=== PATIENT | female | born 1980 | race American Indian/Alaskan Native ===

== ENCOUNTER 2017-02-11 13:40 | Emergency (ER) | payer OTHER ==
[2017-02-11 14:27] VITALS: BP 128/73
--- NOTE | 2017-02-11 15:23 | Cat Scan Report ---
FINAL REPORT PROCEDURE: CT HEAD/BRAIN WO CON TECHNIQUE: Computerized tomography of the head was performed without contrast material. HISTORY: Pain/headache COMPARISON: No prior studies are available for comparison. FINDINGS: Brain: Brain density appears normal. No evidence of intracranial hemorrhage. No parenchymal hemorrhage, mass lesions or mass effect are seen. No abnormal extraxial fluid collects or masses are seen. Ventricles: Ventricles are normal size and are midline. Bone Windows: No evidence of skull fracture. Paranasal sinuses: Small amount of fluid is collected posteriorly in the right and left side of the sphenoid sinus. There is mild mucosal thickening in a few of the ethmoid air cells. Visualized portions of the paranasal sinuses otherwise appear clear. Mastoid air cells: Clear IMPRESSION: Negative unenhanced CT of the brain. Paranasal sinus disease as described. Small amount of fluid is seen in the sphenoid sinuses. I cannot exclude acute sinusitis.
--- NOTE | 2017-02-11 15:37 | Cat Scan Report ---
FINAL REPORT PROCEDURE: CT SINUSES WO CON TECHNIQUE: Computerized axial tomography of the paranasal sinuses was performed without contrast material. Axial, coronal, and sagittal multiplanar reformatted images were created from the original dataset. HISTORY: Pain/headache COMPARISON: No prior studies are available for comparison. FINDINGS: There is mild mucosal thickening in both maxillary sinuses. There is also mild mucosal thickening anteriorly in the sphenoid sinuses. A small air-fluid levels present in the left side of the sphenoid sinus in there is a small amount of fluid or mucosal thickening posteriorly in the right side of the sphenoid sinus. Ethmoid air cells are clear with the exception of minimal mucosal thickening. The frontal sinuses and frontal ethmoidal recesses are clear. Nasal septum is mildly deviated to the right. The infundibulum of the right and left OMC are mildly narrowed secondary to mild mucosal thickening in some mucous otherwise are patent. The middle meatus and semilunar hiatus appear adequate. The sphenoid ethmoidal recesses appear clear. IMPRESSION: Mild diffuse paranasal sinus disease. As indicated above there appears to be a small amount of fluid in the sphenoid sinus. I cannot exclude mild acute sinusitis. Please see above for further details.
[2017-02-11] MEDS ORDERED: MOTRIN PO ONE (17:19)
--- NOTE | 2017-02-11 17:26 | Emergency Department Report ---
- General Chief Complaint: Upper Respiratory Infection Stated Complaint: MOUTH PAIN Time Seen by Provider: 02/11/17 17:09 Source: patient Mode of arrival: Ambulatory Limitations: No Limitations - History of Present Illness Initial Comments: This is a 36-year-old female well-nourished with nontoxic or ill in appearance but presents with sinus headache and toothache. Patient describes headache as a gradual onset in the frontal lobe region that is describes as throbbing aching with a level of 8/10. Patient denies trauma, blurry vision, thunderclap headache , SOB, CP, abdominal pain, n/v, numbness or tingling sentation, or sore throat. Patient denies sick contact. Patient stated symptoms has occurred since and is getting worse. Patient stated has subjective fever and chills. Denies having a PCP or dentist. Denies any drug allergies. MD Complaint: sinus pain -: Gradual, days(s) (3) Severity: moderate Severity scale (0 -10): 8 Quality: aching, other (throbbing) Consistency: constant Improves With: NSAID Associated Symptoms: fever, chills, headache. denies: myalgias, diaphoresis, rhinorrhea, nasal congestion, sore throat, stiff neck, cough, chest pain, shortness of breath, abdominal pain, nausea, vomiting, diarrhea, dysuria, rash, confusion, right sweats, weight loss, epistaxis, hoarseness, ear pain Treatments Prior to Arrival: none - Related Data Previous Rx's Medication Instructions Recorded Last Taken Type Simethicone [Gas Relief] 125 mg PO 1XW #28 capsule 04/08/16 Unknown Rx Amoxicillin/K Clav Tab [Augmentin 1 tab PO Q12HR 10 Days 02/11/17 Unknown Rx 875 mg] Allergies Allergy/AdvReac Type Severity Reaction Status Date / Time No Known Allergies Allergy Unverified 04/08/16 08:18 ED Review of Systems ROS: Stated complaint: MOUTH PAIN Other details as noted in HPI Constitutional: denies: chills, fever Eyes: denies: eye pain, eye discharge, vision change ENT: denies: ear pain, throat pain Respiratory: denies: cough, shortness of breath, wheezing Cardiovascular: denies: chest pain, palpitations, dyspnea on exertion, orthopnea , edema, syncope Endocrine: no symptoms reported Gastrointestinal: denies: abdominal pain, nausea, diarrhea Genitourinary: denies: urgency, dysuria, discharge Musculoskeletal: denies: back pain, joint swelling, arthralgia Skin: denies: rash, lesions Neurological: headache. denies: weakness, numbness, paresthesias, confusion, abnormal gait, vertigo Psychiatric: denies: anxiety, depression Hematological/Lymphatic: denies: easy bleeding, easy bruising ED Past Medical Hx - Past Medical History Previous Medical History?: No - Surgical History Past Surgical History?: Yes Additional Surgical History: Hysterectomy - Social History Smoking Status: Never Smoker Substance Use Type: None - Medications Home Medications: Home Medications Medication Instructions Recorded Confirmed Last Taken Type Simethicone [Gas Relief] 125 mg PO 1XW #28 capsule 04/08/16 Unknown Rx Amoxicillin/K Clav Tab [Augmentin 1 tab PO Q12HR 10 Days 02/11/17 Unknown Rx 875 mg] ED Physical Exam - General Limitations: No Limitations General appearance: alert, in no apparent distress - Head Head exam: Present: atraumatic, normocephalic - Eye Eye exam: Present: normal appearance, PERRL, EOMI. Absent: scleral icterus, conjunctival injection, nystagmus, periorbital swelling, periorbital tenderness Pupils: Present: normal accommodation - ENT ENT exam: Present: normal exam, normal orophraynx, mucous membranes moist, TM's normal bilaterally, normal external ear exam - Expanded ENT Exam Expanded Ear exam: Present: normal external inspection Mouth exam: Present: normal external inspection, tongue normal. Absent: drooling, trismus, muffled voice, tongue elevation, laceration Teeth exam: Present: dental caries (right upper 3rd molar), fractured tooth # ( right upper 3rd molar). Absent: dental tenderness #, gingival enlargement Throat exam: Positive: normal inspection. Negative: tonsillar erythema, tonsillomegaly, tonsillar exudate, R peritonsillar mass, L peritonsillar mass - Neck Neck exam: Present: normal inspection, full ROM. Absent: tenderness, meningismus, lymphadenopathy, thyromegaly - Respiratory Respiratory exam: Present: normal lung sounds bilaterally. Absent: respiratory distress, wheezes, rales, rhonchi, stridor, chest wall tenderness, accessory muscle use, decreased breath sounds, prolonged expiratory - Cardiovascular Cardiovascular Exam: Present: regular rate, normal rhythm, normal heart sounds. Absent: bradycardia, tachycardia, irregular rhythm, systolic murmur, diastolic murmur, rubs, gallop - GI/Abdominal GI/Abdominal exam: Present: soft, normal bowel sounds. Absent: distended, tenderness - Extremities Exam Extremities exam: Present: normal inspection, full ROM, normal capillary refill. Absent: tenderness, pedal edema, joint swelling, calf tenderness - Back Exam Back exam: Present: normal inspection, full ROM. Absent: tenderness, CVA tenderness (R), CVA tenderness (L), muscle spasm, paraspinal tenderness, vertebral tenderness, rash noted - Neurological Exam Neurological exam: Present: alert, oriented X3, CN II-XII intact, normal gait - Expanded Neurological Exam Expanded Patient oriented to: Present: person, place, time Speech: Present: fluid speech (normal speech) Cranial nerves: EOM's Intact: Normal, Gag Reflex: Normal, Tongue Deviation: Normal, Nystagmus: Normal, Facial Sensation: Normal, Facial Palsy with Forehead Movement: Normal, Facial Palsy without Forehead Movement: Normal Cerebellar function: Finger to Nose: Normal, Heel to Gauthier: Normal, Romberg: Normal Upper motor neuron: Javon Neglect: Normal, Pronator Drift: Normal, Sensory Extinction: Normal Sensory exam: Upper Extremity Light Touch: Normal, Upper Extremity Pin Prick: Normal, Upper Extremity Temperature: Normal, UE 2 Point Discrimination: Normal, Lower Extremity Light Touch: Normal, Lower Extremity Pin Prick: Normal, Lower Extremity Temperature: Normal, LE 2 Point Discrimination: Normal Motor strength exam: RUE: 5, LUE: 5, RLE: 5, LLE: 5 Best Eye Response (Staley): (4) open spontaneously Best Motor Response (Giselle): (6) obeys commands Best Verbal Response (Staley): (5) oriented Giselle Total: 15 - Psychiatric Psychiatric exam: Present: normal affect, normal mood - Skin Skin exam: Present: warm, dry, intact, normal color. Absent: rash - Other Other exam information: Frontal sinus tenderness upon palpation. ED Course Vital Signs 02/11/17 02/11/17 14:17 18:13 Temperature 99.0 F 98.0 F Pulse Rate 87 Blood Pressure 128/73 O2 Sat by Pulse 100 Oximetry ED Medical Decision Making - Medical Decision Making ED course: This is a 36-year-old female that presents with acute sinusitis and dental caries. 1- after my physical exam, patient received Augmentin 875 mg by mouth for 10 days. Patient was instructed to finish full course of antibiotics as prescribed. A CT of head/brain and sinus has been obtained in [facility] ED. Ct of head/brain w/o contrast dictated by Dr. Hanna: Negative unenhanced CT of brain. CT of sinuses without contrast dictated by Dr. Hanna: Mild diffuse paranasal sinus disease. As indicated appears to be a small amount of fluid in the sphenoid sinus. Cannot exclude mild acute sinusitis. Due to the clinical symptoms my suspicion patient has acute sinusitis and will be treated for sinusitis. 2- patient was instructed to follow-up with her primary care doctor in 3-5 days or if symptoms worsen such as severe sudden headache, chest pain, shortness of breath, nausea vomiting, abdominal pain or numbness or tingling sensation before by the emergency room. 3- at time time of discharge, the patient does not seem toxic or ill in appearance. No acute signs of distress noted. Patient agrees to discharge treatment plan of care. No further questions noted by the patient. Critical care attestation.: If time is entered above; I have spent that time in minutes in the direct care of this critically ill patient, excluding procedure time. ED Disposition Clinical Impression: Dental caries Sinusitis, acute Qualifiers: Sinusitis location: frontal Recurrence: not specified as recurrent Qualified Code(s): J01.10 - Acute frontal sinusitis, unspecified Disposition: DISCHARGED TO HOME OR SELFCARE Is pt being admited?: No Does the pt Need Aspirin: No Condition: Stable Instructions: Dental Caries (ED), Sinusitis (ED) Additional Instructions: Follow-up with her primary care doctor/dentist in 3-5 days or if symptoms worsen such as severe sudden headache, chest pain, shortness of breath, nausea vomiting, abdominal pain or numbness or tingling sensation before by the emergency room. Take full course of antibiotic as prescribed. Take ibuprofen as prescribed as needed. Prescriptions: Amoxicillin/K Clav Tab [Augmentin 875 mg] 1 tab PO Q12HR 10 Days Referrals: [facility] [place] [Outside] - 3-[address] [facility] [Outside] - 3-5 Days PRIMARY CAREMD [Primary Care Provider] - 3-5 Days MAVIS SHOOK MD [Staff Physician] - 3-5 Days [facility] [Outside] - 3-5 Days Forms: Work/School Release Form(ED)
== END 2017-02-11 18:56 | disposition home or self-care (01) ==
LOC: ED 13:40
DX: K02.9 Dental caries, unspecified (principal); R51 Headache
CPT/HCPCS: 70450; 70486; 99283